=== PATIENT | female | born 1965 | race Caucasian/White ===

== ENCOUNTER 2017-04-13 18:32 | Emergency (ER) | payer MEDICARE, OTHER ==
[2017-04-13 19:09] VITALS: BP 192/83; PULSE 108; RESP 16; TEMP 98.3; O2SAT 100
[2017-04-13] MEDS ORDERED: LANTUS2P SQ (19:44)
[2017-04-13] MEDS ORDERED: METH1CHW PO (19:44)
[2017-04-13] MEDS ORDERED: GLIP10TA6 PO (19:44)
[2017-04-13] MEDS ORDERED: LEVO.15 PO (19:44)
[2017-04-13] MEDS ORDERED: FLUT1SPR5 EACH NARE (19:44)
[2017-04-13] MEDS ORDERED: ALPR0.5T3 PO (19:44)
[2017-04-13] MEDS ORDERED: ERGO2000 PO (19:44)
[2017-04-13] MEDS ORDERED: CLAR10CA3 PO (19:44)
[2017-04-13] MEDS ORDERED: SIMV20TA PO (19:44)
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
[2017-04-13 21:22] VITALS: BP 133/62; PULSE 96; O2SAT 100
[2017-04-14 02:18] VITALS: BP 112/61; PULSE 101; RESP 16; O2SAT 97
== END 2017-04-14 03:21 | disposition home or self-care (01) ==
LOC: NEPJ 18:32 → NEPD 04-14 03:21
DX: F43.10 Post-traumatic stress disorder, unspecified (principal)
CPT/HCPCS: 99283